=== PATIENT | male | born 1995 | race Caucasian/White ===

== ENCOUNTER 2018-08-03 18:07 | Emergency (ER) | payer OTHER ==
[2018-08-03] MEDS ORDERED: Ibuprofen TAB* 600 MG PO ONE (20:12)
--- NOTE | 2018-08-03 20:16 | ED ---
Laceration/Wound HPI - HPI Summary HPI Summary: Patient is a 23-year-old male presenting to the ED with a laceration to the webbing between the middle and ring finger of the left hand which is approximately 1.5 cm in length and 0.5 cm in depth with slight probing. Patient denies any numbness or tingling. He obtained the laceration will carrying a glass bulb, tripping and falling and cutting the webbing between his fingers. He denies any other injuries. Denies any LOC or hitting his head. Denies any limitations with movement, flexion or extension of the MCP or DIP joints. He denies any pain. Bleeding is well controlled on arrival. 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 He cleansed the wound thoroughly just [employer]ISK CONTROL MANAGER. - History of Current Complaint Stated Complaint: LT HAND LAC Time Seen by Provider: 08/03/18 18:18 Hx Obtained From: Patient Mechanism of Injury: Sharp/Blunt Trauma Onset/Duration: Sudden Onset Aggravating: Movement Alleviating: Compression Timing: Constant Onset Severity: Mild Current Severity: Mild Pain Intensity: 2 Pain Scale Used: 0-10 Numeric Associated Signs & Symptoms: Negative Related Hx: Dominant Hand (Right) - Allergy/Home Medications Allergies/Adverse Reactions: Allergies Allergy/AdvReac Type Severity Reaction Status Date / Time No Known Allergies Allergy Verified 08/03/18 18:12 PMH/Surg Hx/FS Hx/Imm Hx Previously Healthy: Yes Infectious Disease History: No Infectious Disease History: Denies: Traveled Outside the [place] in Last 30 Days - Social History Occupation: Unemployed, Student Lives: Dormitory/Roommates Alcohol Use: None Hx Substance Use: No Substance Use Type: Reports: None Hx Tobacco Use: No Smoking Status (MU): Never Smoked Tobacco Review of Systems Constitutional: Negative Negative: Fever, Chills, Fatigue, Skin Diaphoresis Negative: Epistaxis, Dental Pain, Sore Throat, Ear Ache Negative: Palpitations, Chest Pain Negative: Shortness Of Breath, Cough Genitourinary: Negative Positive: no symptoms reported, see HPI Negative: Arthralgia, Myalgia Skin: Negative Neurological: Negative All Other Systems Reviewed And Are Negative: Yes Physical Exam Triage Information Reviewed: Yes Vital Signs On Initial Exam: Initial Vitals Temp Pulse Resp BP Pulse Ox 97.7 F 76 18 111/96 96 08/03/18 18:08 08/03/18 18:08 08/03/18 18:08 08/03/18 18:08 08/03/18 18:08 Vital Signs Reviewed: Yes Appearance: Positive: Well-Appearing, Well-Nourished Skin: Positive: Warm, Skin Color Reflects Adequate Perfusion Head/Face: Positive: Normal Head/Face Inspection Eyes: Positive: EOMI, SERAFIN, Conjunctiva Clear Neck: Positive: Supple, No Lymphadenopathy Respiratory/Lung Sounds: Positive: Clear to Auscultation, Breath Sounds Present Cardiovascular: Positive: RRR, Pulses are Symmetrical in both Upper and Lower Extremities Musculoskeletal: Positive: Normal, Strength/ROM Intact Neurological: Positive: Speech Normal Psychiatric: Positive: Normal, Affect/Mood Appropriate AVPU Assessment: Alert Procedures - Laceration/Wound Repair 1 Location: upper extremity Description: Irregular Anesthesia: Local Betadine Prep?: No Irrigated w/ Saline (ccs): 30 Laceration/Wound Explored: clean Suture Type: Prolene Number of Sutures: 5 Layer Closure?: No Sterile Dressing Applied?: Yes Diagnostics - Vital Signs Vital Signs Temp Pulse Resp BP Pulse Ox 08/03/18 18:08 97.7 F 76 18 111/96 96 - Laboratory Lab Statement: Any lab studies that have been ordered have been reviewed, and results considered in the medical decision making process. Laceration Repair Course/Dx - Course Course Of Treatment: On arrival to the ED, patient's wound is cleansed thoroughly with chlorhexidine and jet irrigated well. He is given 600 mg ibuprofen. Tetanus booster is given. Time out obtained. 0.2 mL lidocaine without epi used as local anesthetic with good effect. 3, 5-0 prolene sutures placed. Antibiotic ointment applied and gauze wrapped. Suture removal in 7-10 days. - Differential Dx Differental Diagnoses: Laceration - Clinical Impression Provider Diagnoses: Laceration Discharge - Sign-Out/Discharge Documenting (check all that apply): Patient Departure - Discharge Plan Condition: Stable Disposition: HOME Patient Education Materials: Care For Your Stitches (ED), Laceration (ED) Referrals: No Primary Care Phys,NOPCP [Primary Care Provider] - Additional Instructions: Keep bandage applied x 1 day, then apply a new bandage x 2-3 days You may then leave open to air suture removal in 7-10 days - Billing Disposition and Condition Condition: STABLE Disposition: Home
[2018-08-03] MEDS ORDERED: Tetan/Diph/Pertus SYR(Tdap)* 0.5 ML SYR(BOOSTRIX) use SYR IM ONE (20:40)
[2018-08-03 20:52] VITALS: BP 133/80
== END 2018-08-03 20:51 | disposition home or self-care (01) ==
LOC: ED 18:07
DX: S61.412A Laceration without foreign body of left hand, initial encounter (principal); W25.XXXA Contact with sharp glass, initial encounter; Y92.9 Unspecified place or not applicable
CPT/HCPCS: 12001; 90471; 90715; 99282; A9270-GY